=== PATIENT | male | born 1970 | race Caucasian/White ===

== ENCOUNTER 2017-04-17 02:09 | Inpatient (IN) | payer MEDICAID ==
[~2017-04-17] VITALS: Ht 180.3 cm; Wt 57.6 kg
[2017-04-17 02:37] VITALS: BP 129/79
--- NOTE | 2017-04-17 02:50 | NUR ---
PT AMBULATED TO ER BED 6
--- NOTE | 2017-04-17 02:59 | NUR ---
LAB AT BEDSIDE, UA DONE SENT TO LAB
--- NOTE | 2017-04-17 02:59 | NUR ---
MC/PD AT BEDSIDE FOR 5150 EVAL
--- NOTE | 2017-04-17 03:08 | NUR ---
MC/PD OFFICER MADDY PUT PT ON 5150 FOR DANGER TO HIMSELF/HERSELF
--- NOTE | 2017-04-17 03:09 | NUR ---
[facility] AT BEDSIDE, ALL BELONGINGS SENT WITH THEM, EMT/SITTER AT BEDSIDE
--- NOTE | 2017-04-17 03:15 | NUR ---
PATIENT IS A 47 Y/O MALE WHO PRESENTS TO THE ED C/O SUICIDAL IDEATION AND FRACTURE. PT REPORTS 9/10 THROBBING PAIN THAT DOES NOT RADIATE. PD PLACED PATIENT ON 5150 HOLD, PT REFUSING TO STATE SUICIDAL IDEATION THOUGHTS STATES, "I AM NOT TELLING YOU ANYTHING." PT AAOX4, RR EVEN/UNLABORED. NO BLEEDING NOTED PT REPOSITIONED FOR COMFORT, BED IN LOWEST POSITION. ER MD DR. GREY NOTIFIED. WILL CONTINUE TO MONITOR.
[2017-04-17 03:18] LABS: BASOPHILS # (AUTO) 0.1 K/uL (0.00-0.22); BASOPHILS % (AUTO) 1.5 % (0.0-2.0); EOSINOPHILS # (AUTO) 0.1 K/uL (0-0.4); EOSINOPHILS % (AUTO) 1.9 % (0.0-4.0); HEMATOCRIT 36.5 % (36-52); HEMOGLOBIN 11.9 g/dL (12.0-18.0); LYMPHOCYTES # (AUTO) 1.1 K/uL (2.0-11.5); LYMPHOCYTES % (AUTO) 18.8 % (20.5-51.1); MEAN CORPUSCULAR HEMOGLOBIN 28 pg (27-31); MEAN CORPUSCULAR HGB CONC 33 g/dL (33-37); MEAN CORPUSCULAR VOLUME 86 fL (80-94); MONOCYTES # (AUTO) 0.6 K/uL (0.8-1.0); MONOCYTES % (AUTO) 10.4 % (1.7-9.3); NEUTROPHILS % (AUTO) 67.4 % (42.2-75.2); PLATELET COUNT (AUTO) 140 K/uL (140-450); RED BLOOD CELL COUNT(AUTO) 4.27 MIL/uL (4.20-6.10); RED CELL DISTRIBUTION WIDTH 19.1 % (11.6-13.7); WHITE BLOOD COUNT (AUTO) 5.9 K/uL (4.8-10.8)
[2017-04-17 03:19] LABS: APPEARANCE,URINE CLEAR (CLEAR); BILIRUBIN,URINE NEGATIVE (NEGATIVE); BLOOD, URINE NEGATIVE (NEGATIVE); COLOR,URINE YELLOW (YELLOW); LEUKOCYTE ESTERASE ,URINE NEGATIVE (NEGATIVE); NITRITE, URINE NEGATIVE (NEGATIVE); PH,URINE 6.5 (5.0-9.0); UGLUCOSE NEGATIVE (NEGATIVE)
[2017-04-17] MEDS ORDERED: KETOROLAC 60 MG/2 ML VIAL IM ONE (03:25)
[2017-04-17 03:27] LABS: BARBITURATE, URINE NEG. ng/ml (NEG <=200); BENZODIAZEPINE, URINE NEG. ng/mL (NEG <=200); CANNABINOID, URINE POS. ng/mL (NEG <=50); COCAINE, URINE NEG. ng/mL (NEG <=300); OPIATE, URINE NEG. ng/mL (NEG <=2000); PHENCYCLIDINE SCREEN,URINE NEG. ng/mL (NEG <=25)
[2017-04-17 03:30] LABS: ANION GAP 7.6 (8-16); CARBON DIOXIDE 30.4 mmol/L (21-32); CHLORIDE 105 mmol/L (98-107); CREATININE 0.9 mg/dL (0.7-1.3); GFR ARICAN-AMERICAN 116 mL/min (>90); GLUCOSE 80 mg/dL (74-106); SODIUM SERUM 139 mmol/L (136-145); UREA NITROGEN, BLOOD 17 mg/dL (7-18)
[2017-04-17 03:35] LABS: RBC,URINE NONE SEEN /HPF (0-5); WBC,URINE 0-5 (RARE) /HPF (0-5)
--- NOTE | 2017-04-17 03:35 | NUR ---
5150 PAPERWORK COMPLETED AND PLACED IN PATIENT CHART.
[2017-04-17 03:36] LABS: ACETAMINOPHEN < 0.5 ug/ml (10-30); ALBUMIN 3.1 g/dL (3.4-5.0); ASPARTATE AMINOTRANSFERASE 121 U/L (15-37); SALICYLATE < 2.8 mg/dL (2.8-20.0); TOTAL BILIRUBIN 0.3 mg/dL (0.0-1.0)
--- NOTE | 2017-04-17 03:37 | NUR ---
CALLED HOUSE SUP FOR DINNER
--- NOTE | 2017-04-17 04:00 | NUR ---
PATIENT RESTING AT THIS TIME. NO SIGNS OF DISTRESS.
--- NOTE | 2017-04-17 05:00 | NUR ---
PATIENT RESTING AT THIS TIME. NO SIGNS OF DISTRESS.
--- NOTE | 2017-04-17 05:30 | NUR ---
Dr. Velasquez evaluating patient at bedside.
--- NOTE | 2017-04-17 06:00 | NUR ---
PATIENT RESTING AT THIS TIME. NO SIGNS OF DISTRESS.
[2017-04-17] MEDS: NACL 0.9% 1,000 ML IV SCH (06:03)
[2017-04-17] MEDS ORDERED: ACETAMINOPHEN 325 MG TAB PO PRN (06:05)
[2017-04-17] MEDS ORDERED: ONDANSETRON 4 MG/2 ML VIAL IVP PRN (06:05)
[2017-04-17] MEDS ORDERED: HYDROcodone/APAP 7.5/325 MG 1 TAB PO PRN (06:05)
--- NOTE | 2017-04-17 06:21 | NUR ---
Dr. Dean evaluating patient at bedside.
--- NOTE | 2017-04-17 06:23 | NUR ---
Patient noted to have existing wounds upon arrival to ER. Photos taken of wound and placed in chart. Wound covered with dressing. Physician informed.
--- NOTE | 2017-04-17 06:25 | NUR ---
Note ruddyone in EDM - 04/17/17 at 0633 by [email or web address] Patient discharged with v/s stable. Written and verbal after care instructions given and explained. Patient alert, oriented and verbalized understanding of instructions. Ambulatory with steady gait. All questions addressed prior to discharge. ID band removed. Patient advised to follow up with PMD. Rx of NORCO 5MG-325MG given. Patient educated on indication of medication including possible reaction and side effects. Opportunity to ask questions provided and answered.
--- NOTE | 2017-04-17 06:25 | NUR ---
Patient will be admitted to care of DR. MAGAÑA. Admited to TELE. Will go to room 109B. Belongings list completed. Report to PORSHA CARTER.
--- NOTE | 2017-04-17 06:32 | NUR ---
ADMITTED PATIENT TO THE TELE UNIT, PATIENT BECAME AGITATED AND COMBATIVE. HE PULLED OUT HIS IV AND REFUSED VITAL SIGNS, TELE MONITOR AND MRSA SWAB. PATIENT YELLING," DON'T TOUCH ME, PUT ME IN THE REGULAR ROOM, YOU MOTHER FUCK." LANDON RG INITIATED, MADE DR. OSORIO AWARE. WILL CONTINUE TO MONITOR.
[2017-04-17] MEDS ORDERED: HALOPERIDOL IM 5 MG/ML VIAL IM ONE (06:40)
--- NOTE | 2017-04-17 06:45 | NUR ---
RECEIVED PT FROM ER.PT IS COMBATIVE AND REFUSED TELEMETRY.HE TOOK OUT HIS IV LINE.HE REFUSED TO COLLECT MRSA SWAB.AND STARTED TALKING W/BAD WORDS TO STAFF.CALLED LANDON RG.RESIDENT ORDERED HALDOL 5 MG IM IT GIVEN TO PT BY TERRA CARTER TIRE BUILDING SUPERVISOR.
[2017-04-17] MEDS ORDERED: HALOPERIDOL IM 5 MG/ML VIAL ONE (06:49)
[2017-04-17] MEDS ORDERED: LORazepam 2 MG/ML VIAL IVP PRN (07:15)
--- NOTE | 2017-04-17 07:15 | NUR ---
ENDORSED PLAN OF CARE TO DAY RN. PATIENT IS SLEEPING, RESPIRATION EVEN AND UNLABORED. 1:1 SITTER AT BEDSIDE. SAFETY MEASURE ENSURED.
--- NOTE | 2017-04-17 07:17 | NUR ---
RECEIVED REPORT FROM NIGHT RN. PT SLEEPING IN BED. PT'S EASILY AGITATED WHEN AWOKEN. PT REFUSED TELE BOX, MRSA SWAB, IV INSERTION AND VITALS TO BE TAKEN. PT EDUCATED ON NEED BUT STATES "NO" WHEN ASKED TO PROCEED WITH CARE. DR. OSORIO MADE AWARE. PT REFUSED ASSESSMENT BY MD. NO S/S OF ACUTE DISTRESS. AAOX4. 1:1 SITTER PRESENT. WILL CONTINUE TO MONITOR.
[2017-04-17] MEDS ORDERED: ALBUTEROL SULFATE/IPRATROPIU 3 ML SOL IH PRN (07:45)
--- NOTE | 2017-04-17 08:35 | NUR ---
PT REFUSED EKG EMMA STEWARD NOTIFIED
[2017-04-17 08:55] LABS: CHOL/HDL RATIO 2.7 (1-4.5); FREE T4 (FREE THYROXINE) 0.89 ng/dL (0.76-1.46); MAGNESIUM 1.9 mg/dL (1.8-2.4); PHOSPHORUS 4.2 mg/dL (2.5-4.9); PROTHROMBIN TIME 9.9 secs (10.8-13.4); THYROID STIMULATING HORMONE 1.65 uIU/mL (0.34-3.74)
[2017-04-17] MEDS: DOCUSATE SODIUM 100 MG GELCAP PO SCH ×2 (09:00→21:00)
[2017-04-17] MEDS: THIAMINE 100 MG TAB PO SCH (09:00)
[2017-04-17] MEDS: MULTIVITAMIN 1 TAB PO SCH (09:00)
[2017-04-17] MEDS: FOLIC ACID 1 MG TAB PO SCH (09:00)
[2017-04-17] MEDS ORDERED: QUEtiapine FUMARATE 25 MG TAB PO SCH (09:00)
[2017-04-17] MEDS: PANTOPRAZOLE 40 MG INJ VIAL IVP SCH (09:00)
[2017-04-17 10:07] LABS: ALBUMIN 3.2 g/dL (3.4-5.0); BILIRUBIN,DIRECT 0.2 mg/dL (0.0-0.3); TOTAL BILIRUBIN 0.3 mg/dL (0.0-1.0)
--- NOTE | 2017-04-17 10:42 | NUR ---
PATIENT CHART REVIEWED. PER H&P NOTE: PT IS CONFUSED, VERY COMBATIVE, AND AGITATED / THROWING STUFF ON MEDICAL STAFF. PATIENT DOES NOT HAVE ENOUGH INFO IN THEIR MEDICAL CHART TO ACCURATELY SCREEN. PATIENT IS CATEGORIZED NUTRITION SCREEN DUE IN TWO DAYS AFTER PT ADMIT DATE. 04/19/2017 ANITHA GRANADO MBA, RD
[2017-04-17] MEDS ORDERED: ZIPRASIDONE 40 MG CAP PO SCH (11:15)
--- NOTE | 2017-04-17 11:25 | NUR ---
PT SLEEPING IN BED. NO S/S OF ACUTE DISTRESS. PT REFUSES IV AND TELE BOX AT THIS TIME.
--- NOTE | 2017-04-17 12:51 | NUR ---
FACESHEET FAXED TO DR. NESBITT.
[2017-04-17] MEDS: LORazepam 1 MG TAB PO SCH ×2 (12:55→21:00)
[2017-04-17] MEDS: ALBUTEROL SULFATE/IPRATROPIU 3 ML SOL IH SCH ×2 (13:08→18:00)
--- NOTE | 2017-04-17 13:08 | NUR ---
PT REFUSED BREATHING TX AND VITAL SIGNS
--- NOTE | 2017-04-17 16:31 | NUR ---
PT SLEEPING IN BED. NO S/S OF ACUTE DISTRESS. SITTER AT BEDSIDE. WILL CONTINUE TO MONITOR.
[2017-04-17] MEDS: ZIPRASIDONE 40 MG CAP PO SCH (16:33)
--- NOTE | 2017-04-17 18:45 | NUR ---
PATIENT IS SLEEPING AND SIGNS OF RESP. DISTRESS NOTED Addendum: 04/17/17 at 2040 by Maribel Ramon RT AND NO SIGNS OF RESPIRATORY DISTRESS
--- NOTE | 2017-04-17 19:15 | NUR ---
ENDORSED PLAN OF TO NIGHT RN. PT REMAINS STABLE.
--- NOTE | 2017-04-17 20:00 | NUR ---
RECEIVED ASLEEP, NOT IN ANY KIND OF DISTRESS. NO PAIN OR DISCOMFORT NOTED. ON 5150 HOLD FOR SUICIDAL IDEATION. SITTER AT BEDSIDE. AM SHIFT RN SAID PT.GETS VERY AGITATED AND COMBATIVE WHEN WOKEN UP AND HAS BEEN REFUSING MEDICATIONS,BLOOD DRAWS,OTHER TESTS, VITAL SIGNS CHECK. WILL CLOSELY MONITOR.
--- NOTE | 2017-04-17 20:40 | NUR ---
PATIENT STILL SLEEPING, UNABLE TO DO INCENTIVE SPIROMETER
--- NOTE | 2017-04-17 21:00 | NUR ---
DUE MEDS NOT GIVEN DUE TO REFUSAL. ALSO PT. DOES NOT NEED ATIVAN DUE TO SEDATION.
--- NOTE | 2017-04-17 21:12 | NUR ---
PER MS ALVARADO, AID WATCHING PATIENT SAID PATIENT WILL BE UPSET AND ANGRY IF HE IS WOKEN UP
--- NOTE | 2017-04-17 23:47 | NUR ---
PT.WOKE UP AND BECAME VERY AGITATED AND COMBATIVE. STARTED THROWING HIS PUDDING AND JELLO TO THE WALL. HOSPITAL SECURITY CALLED AND IMMEDIATELY ARRIVED AT BEDSIDE. PT.BECAME MORE AGITATED AND HE THREW HIS URINAL FILLED WITH URINE AT ONE OF THE SECURITY OFFICERS. CANDY Cruz NOTIFIED.
--- NOTE | 2017-04-18 | NUR ---
HALDOL 5 MG IM GIVEN WITH THE HELP OF SECURITY AND BOTTLE WASHER MACHINE AMANUEL.
--- NOTE | 2017-04-18 00:02 | NUR ---
CANDY SPENCE ARRIVED AT BESIDE AND TRIED TO PACIFY PATIENT. RESTRAINTS SUGGESTED TO RESIDENT ON DUTY BUT REFUSED. HE SAID IT WILL AGGRAVATE PATIENT'S AGITATION.
--- NOTE | 2017-04-18 01:00 | NUR ---
ASLEEP, NOT IN ANY KIND OF DISTRESS. NO PAIN OR DISCOMFORT NOTED. WILL CLOSELY MONITOR.
--- NOTE | 2017-04-18 04:00 | NUR ---
ASLEEP, NOT IN ANY KIND OF DISTRESS. NO PAIN OR DISCOMFORT NOTED. WILL CONTINUE TO MONITOR. SITTER REMAINS AT BEDSIDE.
[2017-04-18] MEDS: LORazepam 1 MG TAB PO SCH ×3 (05:00→21:00)
--- NOTE | 2017-04-18 05:00 | NUR ---
PT.ASLEEP,SEDATED. ATIVAN 1 MG PO NOT GIVEN.
--- NOTE | 2017-04-18 06:41 | NUR ---
LAST NIGHT RECEIVED CALL FROM [facility].THEY POSSIBLE WILL HAVE DISCHARGE SO THEN THEY WILL HAVE BED FOR THIS PT.INFORMED RESIDENT THIS MORNING.
--- NOTE | 2017-04-18 06:46 | NUR ---
PT COMBATIVE WOULD NOT ALLOW ASSESSMENT TO BE DONE
--- NOTE | 2017-04-18 07:15 | NUR ---
RECEIVED PT REPORT AT BEDSIDE FROM TRANSPORTATION SUPERVISOR. PT AOX4. PT WAS CALM AT THIS TIME. PT IS WITH 1:1 SITTER. NO IV LINE IN PLACE. WILL CONTINUE TO MONITOR.
--- NOTE | 2017-04-18 07:22 | NUR ---
ENDORSED CARE TO RAZIA ARMIJO
[2017-04-18] MEDS: ZIPRASIDONE 40 MG CAP PO SCH ×2 (08:00→17:00)
--- NOTE | 2017-04-18 08:30 | NUR ---
PT REFUSED TO HAVE VITAL SIGNS TAKEN. PT REFUSED TO HAVE SCHEDULED MEDICATIONS. EXPLAINED TO PT ABOUT THE BENEFITS OF TAKING MEDICATION AND RISKS FOR NOT TAKING THEM. PT STILL REFUSED HIS MEDS. PT CALMLY RESTING IN BED.
[2017-04-18] MEDS: FOLIC ACID 1 MG TAB PO SCH (09:00)
[2017-04-18] MEDS: MULTIVITAMIN 1 TAB PO SCH (09:00)
[2017-04-18] MEDS: DOCUSATE SODIUM 100 MG GELCAP PO SCH ×2 (09:00→21:00)
[2017-04-18] MEDS: PANTOPRAZOLE 40 MG INJ VIAL IVP SCH (09:00)
[2017-04-18] MEDS: THIAMINE 100 MG TAB PO SCH (09:00)
[2017-04-18] MEDS: NACL 0.9% 1,000 ML IV SCH ×2 (09:09→22:03)
--- NOTE | 2017-04-18 09:54 | NUR ---
PATIENT SEEN BY DR FORRESTER. LEFT FOOT FRACTURE SPLINTED AND WRAPPED AT BEDSIDE BY THE DR. DR FORRESTER INSTRUCTS PT NOT TO BEAR WEIGHT ON THE FRACTURED FOOT. PATIENT VERBALIZED UNDERSTANDING
[2017-04-18 10:45] VITALS: BP 119/68
[2017-04-18] MEDS: HYDROmorphone 1 MG/ML AMP IVP PRN ×2 (11:31→17:40)
[2017-04-18 12:10] LABS: BASOPHILS # (AUTO) 0.1 K/uL (0.00-0.22); BASOPHILS % (AUTO) 1.8 % (0.0-2.0); EOSINOPHILS # (AUTO) 0.1 K/uL (0-0.4); HEMATOCRIT 38.1 % (36-52); HEMOGLOBIN 12.4 g/dL (12.0-18.0); LYMPHOCYTES # (AUTO) 1.1 K/uL (2.0-11.5); LYMPHOCYTES % (AUTO) 21.4 % (20.5-51.1); MEAN CORPUSCULAR HEMOGLOBIN 28 pg (27-31); MEAN CORPUSCULAR HGB CONC 33 g/dL (33-37); MEAN CORPUSCULAR VOLUME 85 fL (80-94); MONOCYTES # (AUTO) 0.6 K/uL (0.8-1.0); MONOCYTES % (AUTO) 11.8 % (1.7-9.3); NEUTROPHILS # (AUTO) 3.3 K/uL (1.8-7.7); PLATELET COUNT (AUTO) 128 K/uL (140-450); RED BLOOD CELL COUNT(AUTO) 4.47 MIL/uL (4.20-6.10); RED CELL DISTRIBUTION WIDTH 18.5 % (11.6-13.7); WHITE BLOOD COUNT (AUTO) 5.2 K/uL (4.8-10.8)
[2017-04-18 12:23] LABS: ANION GAP 10.2 (8-16); CARBON DIOXIDE 29.8 mmol/L (21-32); MAGNESIUM 1.7 mg/dL (1.8-2.4); PHOSPHORUS 4.4 mg/dL (2.5-4.9)
--- NOTE | 2017-04-18 12:41 | NUR ---
FAXED FACESHEET TO [facility].
--- NOTE | 2017-04-18 14:30 | NUR ---
PT REQUESTED SNACKS. PT WAS GIVEN CRACKERS AND JELLO.
--- NOTE | 2017-04-18 15:00 | NUR ---
NOTIFIED DR. MELARA ABOUT MG 1.7, IS AWARE.
[2017-04-18] MEDS ORDERED: MAGNESIUM OXIDE 400 MG TAB PO SCH (15:30)
--- NOTE | 2017-04-18 15:40 | NUR ---
CALLED [facility] REGARDING PLACEMENT. WAS INFORMED THEY WOULD CHECK TO SEE IF THE BED AVAILABLE WAS A COUNT BED AND WOULD CALL BACK.
[2017-04-18 16:00] VITALS: BP 116/78
--- NOTE | 2017-04-18 16:20 | NUR ---
PT REFUSED MAGNESIUM OX AND GEODON. EXPLAINED TO PT THE REASON AND THE IMPORTANCE OF THE MEDS. PT STILL REFUSED THEM. PT STATED HE TAKES WELLBUTRIN, SEROQUEL AND DILANTIN. INFORMED DR. MELARA ABOUT THESE MEDS STATED BY PT.
[2017-04-18] MEDS ORDERED: QUET400T PO (17:44)
[2017-04-18] MEDS ORDERED: PHEN100C3 PO (17:44)
[2017-04-18] MEDS ORDERED: [UNRECOGNIZED DRUG - CODE] PO (17:44)
[2017-04-18] MEDS ORDERED: BUPR300T70 PO (17:44)
[2017-04-18] MEDS: ALBUTEROL SULFATE/IPRATROPIU 3 ML SOL IH SCH (18:00)
--- NOTE | 2017-04-18 18:58 | NUR ---
PT REFUSED HHN MEDICATION TREATMENT, O2 SAT AND ASSESSMENT. NO SIGNS OF RESP DISTRESS NOTED
--- NOTE | 2017-04-18 19:36 | NUR ---
ENDORSE PT TO FACE WORKER. REPORT GIVEN AT PT BEDSIDE. PT IS IN STABLE CONDITION, NO S/S OF ACUTE DISTRESS NOTED.
--- NOTE | 2017-04-18 19:37 | NUR ---
PATIENT IS CURRENTLY SLEEPING IN BED CONTINUES TO BE MONITORED WITH SITTER KENNEY CARLOS.NEEDS CONTINUE TO BE MET.WILL CONTINUE TO MONITOR.
--- NOTE | 2017-04-18 20:22 | NUR ---
PATIENT CURRENTLY ASSISTED TO THE BATHROOM AND BACK TO BED BY KENNEY GONZALEZ I CALLED SECURITY TO COME AND STAY WITH ME WHILE GIVING MEDS TO MY PATIENT.I TOLD THE PATIENT THAT I HAVE HIS NIGHT TIME MEDICATION PATIENT REFUSED. I INSISTED AND EXPLAINED WHY HE NEEDS HIS MEDICATION PATIENT REFUSED.
--- NOTE | 2017-04-18 20:34 | NUR ---
PATIENT HAD A SEVERE EPISODE OF AGGRESSIVENESS AND YELLING AND WANTING TO LEAVE THE HOSPITAL.CURSING AT STAFF SECURITY AND RESP THERAPIST DAVON AND JEWEL HOLE GAUGER NURSE MARIA G AND MYSELF IN THE ROOM ATTEMPTING TO CALM THE PATIENT DOWN BUT PATIENT ISN'T LISTENING AND IS BEING NON COMPLIANT AND VERY AGGRESSIVE.PATIENT WAS MEDICATED WITH HALDOL IM GIVEN BY JEWEL HOLE GAUGER NURSE MARIA G WITH THE ASSISTANCE OF STAFF AND ONLINE TRADER.WILL CONTINUE TO MONITOR.MD RESIDENT AWARE OF PATIENT'S BEHAVIOR AND CAME DOWN TO SEE THE PATIENT AND TALK TO THE PATIENT.
[2017-04-18] MEDS: HALOPERIDOL IM 5 MG/ML VIAL IM PRN ×2 (20:37)
[2017-04-18] MEDS: PHENYTOIN 100 MG CAPER PO SCH (21:00)
[2017-04-18] MEDS ORDERED: QUEtiapine FUMARATE 100 MG TAB PO SCH (21:00)
--- NOTE | 2017-04-18 22:15 | NUR ---
PATIENT IS CURRENTLY SLEEPING IN BED CONTINUES TO REMAIN CALM WILL CONTINUE TO MONITOR SITTER 1:1 AT BEDSIDE.
--- NOTE | 2017-04-19 01:06 | NUR ---
PATIENT IS CURRENTLY SLEEPING QUIETLY IN BED CONTINUES TO BE MONITORED BY KENNEY WONG 1:1 AT THIS TIME WILL CONTINUE TO MONITOR.
--- NOTE | 2017-04-19 02:28 | NUR ---
PATIENT SLEEPING COMFORTABLY IN BED IN NO DISTRESS WILL CONTINUE TO MONITOR.SITGREENE SITTER AT THIS TIME TIME 1:1.
--- NOTE | 2017-04-19 04:20 | NUR ---
PATIENT SLEEPING AT THIS TIME CONTINUES TO BE MONITORED BY ELEAZAR WONG 1:1 WILL CONTINUE TO MONITOR.
[2017-04-19] MEDS: LORazepam 1 MG TAB PO SCH ×2 (05:00→12:22)
[2017-04-19] MEDS: ALBUTEROL SULFATE/IPRATROPIU 3 ML SOL IH SCH ×2 (06:00→13:26)
--- NOTE | 2017-04-19 06:00 | NUR ---
ASSUMED CONTINUITY OF CARE. NO SIGNS AND SYMPTOMS OF ACUTE DISTRESS NOTED. PT. SLEEPING ON BED COMFORTABLY. NO SOB, NOTED. WILL MONITOR CLOSELY 1:1.
--- NOTE | 2017-04-19 06:28 | NUR ---
DR. MELARA CAME, INFORMED THAT PT. REFUSED IVF, REFUSED IV INSERTION, REFUSED TELE MONITOR, REFUSED SCHEDULED MEDICINE, REFUSED ANY KIND OF TREATMENT. DR. MELARA SPOKE TO PT. ON BEDSIDE BUT PT. NON-COMPLIANT, AGGRESSIVE, VERBALLY ABUSIVE, AND THREATENED TO HURT ANYONE WHO WILL TRY TO GO CLOSE TO HIM. INFORMED CHARGE NURSE BLU CUMMINS -EMMA. CONTINUE TO WATCH PT. 1:1 IN A SAFE DISTANCE.
--- NOTE | 2017-04-19 06:30 | NUR ---
PT COMBATIVE REFUSES VITALS AND HHN
--- NOTE | 2017-04-19 06:35 | NUR ---
RESIDENT DOCTOR IS AWARE THAT PATIENT IS NOT ON TELE PATIENT REFUSED THREATENING TO HIT STAFF AND REFUSED LAST NIGHT HIS ROUTINE MEDICATION MD MELARA AWARE SAID HE WILL PUT NEW ORDERS IN.
--- NOTE | 2017-04-19 06:50 | NUR ---
MECHANICAL ENGINEERING TECHNICIAN ADALID CAME FOR AM BLOOD DRAW. PT. REFUSED AND STATES "GET OUT FROM HERE, I DON'T NEED IT." IN A LOUD TONE OF VOICE. INFORMED CHARGE NURSE BLU CUMMINS -EMMA.
[2017-04-19] MEDS ORDERED: HALOPERIDOL IM 5 MG/ML VIAL IM SCH (07:00)
--- NOTE | 2017-04-19 07:15 | NUR ---
PATIENT CURRENTLY ENDORSED TO EDITA ROMAN ENDORSED THAT PATIENT HAD AN EPISODE OF COMBATIVENESS AND AGGRESSIVENESS, AND REFUSED TO HAVE STAFF GET NEAR HIM, AND REFUSED LAST NIGHT HIS MEDICATIONS.EDITA GRACIARE AWARE AND HE WILL RESUME CARE OF THE PATIENT.
--- NOTE | 2017-04-19 07:47 | NUR ---
DR. VEGA, GROUP OF RESIDENTS MD, AND CHARGE NURSE MADE THEIR PT. ROUNDS. PT. NON-COMPLIANT, AGGRESSIVE AND VERBALLY ABUSIVE TOWARDS DR. VEGA.
[2017-04-19] MEDS: ZIPRASIDONE 40 MG CAP PO SCH ×3 (08:00→17:00)
--- NOTE | 2017-04-19 08:00 | NUR ---
Patient's Plan of Care was discussed and reviewed with DOCUMENT DESIGN SPECIALIST: MARGIE
[2017-04-19] MEDS ORDERED: COMMUNICATION ORDER MC PRN (08:30)
--- NOTE | 2017-04-19 08:32 | NUR ---
INSERTED IV ON LEFT FOREARM WITH GAUGE #22. TOLERATED WELL.
[2017-04-19 08:40] VITALS: BP 115/70
--- NOTE | 2017-04-19 08:40 | NUR ---
CALM, QUIET, AND COOPERATIVE. ABLE TO CONVINCED TO CHECK VS AT THIS TIME. VS STABLE. NO DISTRESS NOTED.
[2017-04-19] MEDS: HYDROmorphone 1 MG/ML AMP IVP PRN ×2 (08:55→15:22)
[2017-04-19] MEDS: PANTOPRAZOLE 40 MG INJ VIAL IVP SCH (08:57)
--- NOTE | 2017-04-19 09:02 | NUR ---
PHYSICAL THERAPIST CAME FOR PT. PHYSICAL THERAPY. CALM, QUIET, AND COOPERATIVE. NO UNTOWARD BEHAVIOR NOTICED.
[2017-04-19] MEDS: DOCUSATE SODIUM 100 MG GELCAP PO SCH (09:27)
[2017-04-19] MEDS: PHENYTOIN 100 MG CAPER PO SCH (09:28)
[2017-04-19] MEDS: MULTIVITAMIN 1 TAB PO SCH (09:29)
[2017-04-19] MEDS: LITHIUM CARBONATE 300 MG TAB PO SCH ×3 (09:29→17:00)
[2017-04-19] MEDS: FOLIC ACID 1 MG TAB PO SCH (09:29)
[2017-04-19] MEDS: THIAMINE 100 MG TAB PO SCH (09:30)
--- NOTE | 2017-04-19 09:43 | NUR ---
SPOKE WITH ART FROM [facility] [place]. SENT INFORMATION TO HIM AT [phone] PHONE [phone]
--- NOTE | 2017-04-19 10:18 | NUR ---
PATIENT HAS BEEN SCREENED AND CATEGORIZED HIGH NUTRITION RISK. PATIENT WILL BE SEEN WITHIN 1-2 DAYS OF ADMISSION. 04/17/17-04/18/[address]
--- NOTE | 2017-04-19 10:23 | NUR ---
EXPLAINED PT. ABOUT MD ORDER OF MAGNESIUM 2000 MG IVPB SCHEDULED AT 1030, AND LEVAQUIN 750 MG IVPB SCHEDULED AT 1300. VERBALIZED UNDERSTANDING BUT PT. REFUSED. ASKED PT. IF PO MAG-OX AND PO LEVAQUIN WILL BE OK IF MD WILL CHANGE ORDERS. PT. STATES "NO, I DON'T WANT ANY." INFORMED CHARGE NURSE YANDEL SHERMAN.
--- NOTE | 2017-04-19 10:25 | NUR ---
INFORMED DR. DUTTON THAT PT. REFUSED MAGNESIUM SULFATE 2000 MG. IVPB SCHEDULE AT 1030 OR MAG-OXIDE PO IF EVER IVPB BE REPLACE, REFUSED IVF, REFUSED LEVAQUIN 750 MG IVPB SCHEDULE AT 1300. ALSO INFORMED CHARGE NURSE YANDEL SHERMAN.
[2017-04-19] MEDS ORDERED: MAG SULF 2000 MG/WATER PREMIX 50 ML IV SCH (10:30)
[2017-04-19] MEDS ORDERED: ZIPRASIDONE 20 MG/ML IM PRN (11:25)
[2017-04-19 12:00] VITALS: BP 103/71
--- NOTE | 2017-04-19 12:49 | NUR ---
BIT SHAVER ADALID CAME FOR PT. BLOOD DRAW THAT REFUSED IN AM. PT. STILL REFUSED. INFORMED CHARGE NURSE YANDEL SHERMAN AND DR. DUTTON.
[2017-04-19] MEDS ORDERED: LEVOFLOXACIN 750 MG/D5W PREMIX 150 ML IV SCH (13:00)
--- NOTE | 2017-04-19 13:04 | NUR ---
INFORMED DR. DUTTON THAT PT. REFUSED ATIVAN 1 MG. PO SCHEDULED AT 1300. NO ORDER RECEIVED FROM DR. DUTTON.
--- NOTE | 2017-04-19 13:04 | NUR ---
1100 MET WITH PT FOR DISCHARGE SCREEN AND PT STATED "WHEN ARE YOU GOING TO FIND A PLACE FOR ME". EXPLAINED TO PT THAT INQUIRIES HAVE BEEN MADE TO MULTIPLE PSYCH FACILITIES. PT STATED THAT HE HAS HAD MANY INPATIENT PSYCH ADMISSIONS AND DIFFERENT FACILITIES. PT STATED THAT HE CURRENTLY RECEIVES $1085/MONTH [facility]SI B&C ALLOTTED FUND. STATED THAT HE WANTS TO FIND A B&C. ASKED HIM IF ANY OF THE PSYCH FACILITIES HE HAS BEEN IN HAVE PROVIDED HIM WITH B&C REFERRALS NOT ALL B&C WILL ACCEPT RESIDENTS WITH BEHAVIORAL ISSUES. PT THEN STATED "GET OUT OF HERE" AND REFUSED TO ANSWER ANY FURTHER QUESTIONS.
--- NOTE | 2017-04-19 13:27 | NUR ---
PT REFUSES HHN AND VITALS
--- NOTE | 2017-04-19 15:00 | NUR ---
04/19/17 INITIAL NUTRITION ASSESSMENT COMPLETE 1. CONTINUE REGULAR DIET 2. ADD HEALTH SHAKE BID 3. CONTINUE THERAGRAN 4. ENCOURAGE INCREASED PO INTAKE TOLERATED 5. PROVIDE NUTRITION EDUCATION NEEDED 6. RD TO FOLLOW UP WITHIN 2-3 DAYS; HIGH RISK MEENA BACH RD
[2017-04-19 15:05] VITALS: BP 110/72
--- NOTE | 2017-04-19 15:12 | NUR ---
DR. PAIGE CAME AND SPOKE TO PT. ON BEDSIDE. PT. CALM, QUIET, AND COOPERATIVE. NO AGGRESSIVE BEHAVIOR OBSERVED.
--- NOTE | 2017-04-19 15:30 | NUR ---
PER DR. PAIGE PT. NO LONGER ON 5150 HOLD AND NO NEED TO HAVE A SITTER 1:1. INFORMED CHARGE NURSE YANDEL SHERMAN
--- NOTE | 2017-04-19 16:14 | NUR ---
SEEN WATCHING TV AT THIS TIME. NO C/O PAIN. NO SOB, NOTED. NO SUICIDAL THOUGHTS OBSERVED. CALL LIGHT WITHIN REACH.
[2017-04-19] MEDS ORDERED: [UNRECOGNIZED DRUG - CODE] PO (16:37)
[2017-04-19] MEDS ORDERED: PHEN100C3 PO (16:37)
[2017-04-19] MEDS ORDERED: BUPR300T70 PO (16:37)
[2017-04-19] MEDS ORDERED: QUET400T PO (16:37)
[2017-04-19] MEDS ORDERED: ACET-9529 PO (16:40)
--- NOTE | 2017-04-19 17:10 | NUR ---
DR. DUTTON SPOKE TO PT. REGARDING D/C INSTRUCTIONS AND TEACHING. PT. CALM, QUIET, AND COOPERATIVE.
--- NOTE | 2017-04-19 17:15 | NUR ---
EXPLAINED PT. ABOUT MD D/C ORDER, D/C INSTRUCTIONS AND TEACHING, DISEASE MANAGEMENT TEACHING, MD PRESCRIPTION LIST EDUCATION, PAIN MANAGEMENT TEACHING, FOLLOW-UP APPOINTMENT WITH [facility] ON 04/27/17 AT 1:30 PM, FOLLOW-UP APPOINTMENT WITH LONA FARMER ON 04/26/17 AT 1:30 PM, HOMELESS/COMMUNITY RESOURCES PACKET, COUNSELLING/MENTAL HEALTH/PSYCHIATRIC PROGRAMS PACKET, HOMELESS PATIENT WAIVER FORM. VERBALIZED UNDERSTANDING.
--- NOTE | 2017-04-19 17:28 | NUR ---
D/C VIA WHEELCHAIR. AWAKE, ALERT, AND ORIENTED X4. SPEECH CLEAR. NO C/O PAIN. NO SOB, NOTED. NO SUICIDAL THOUGHTS NOTED. IN STABLE CONDITION. INFORMED CHARGE NURSE YANDEL SHERMAN.
[2017-04-19] MEDS ORDERED: clonazePAM 0.5 MG TAB PO SCH (21:00)
[2017-04-20 06:28] LABS: FOLIC ACID 19.6 ng/mL (>3.0)
[2017-04-20] MEDS ORDERED: buPROPion 100 MG TAB PO SCH (09:00)
== END 2017-04-19 17:28 | disposition home or self-care (01) | DRG 52 ==
LOC: MED 02:09 → MTU 06:13
PROVIDERS: ADMIT Family Medicine; ATTEND Family Medicine
DX: G92 Toxic encephalopathy (principal); R45.851 Suicidal ideations; R56.9 Unspecified convulsions; E44.0 Moderate protein-calorie malnutrition; E83.42 Hypomagnesemia; D64.9 Anemia, unspecified; S92.512A Displaced fracture of proximal phalanx of left lesser toe(s), initial encounter for closed fracture; J44.9 Chronic obstructive pulmonary disease, unspecified; F12.10 Cannabis abuse, uncomplicated; B19.20 Unspecified viral hepatitis C without hepatic coma; F60.3 Borderline personality disorder; F25.0 Schizoaffective disorder, bipolar type; X58.XXXA Exposure to other specified factors, initial encounter; Z88.0 Allergy status to penicillin; Z88.1 Allergy status to other antibiotic agents; Z59.0 Homelessness; Z68.1 Body mass index [BMI] 19.9 or less, adult; Y93.89 Activity, other specified; Y92.89 Other specified places as the place of occurrence of the external cause; Y99.8 Other external cause status; Z91.14 Patient's other noncompliance with medication regimen
CPT/HCPCS: 36415; 73630; 80048; 80053; 80076; 80305; 81001; 82150; 82550; 82607; 82728; 82746; 83036; 83540; 83690; 83735; 83880; 84100; 84439; 84443; 84484; 85025; 85045; 85610; 85730; 96372; 97110; 99285; C9113; G0480; G0482; J1170; J1630; J1885; Q0092